=== PATIENT | female | born 1955 | race Caucasian/White ===

== ENCOUNTER → 2018-08-12 | Outpatient (CLI) | payer MEDICARE, OTHER ==
[~2018-08-12] MED LIST: CELEBREX 200 M200 M1 PO; DICLOFENAC; DOXYCYCLINE PO; EXCEDRIN CAPLE1 EACH PO; FLEXERIL PO; HYDROCHLOROTHIA25 M2 PO; HYDROCODONE-APA1 TA1 PO; MAXALT; METAXALL800 MG PO; MULTIVITAMINS; PERCOCET PO; TESTOSTERONE CREAM; TRAMADOL 50 MG50 MG PO
== END ==
LOC: M.RAD 15:37
DX: M41.84 Other forms of scoliosis, thoracic region (principal); M47.894 Other spondylosis, thoracic region; M25.78 Osteophyte, vertebrae; G89.29 Other chronic pain; M54.6 Pain in thoracic spine

== ENCOUNTER → 2018-12-04 | Outpatient (CLI) | payer MEDICARE, OTHER | LOC: M.RAD 09:33 | DX: Z12.31 Encounter for screening mammogram for malignant neoplasm of breast (principal) ==

== ENCOUNTER → 2020-02-24 | Outpatient (CLI) | payer MEDICARE, OTHER | LOC: M.RAD 09:26 | DX: M85.88 Other specified disorders of bone density and structure, other site (principal) ==

== ENCOUNTER → 2020-03-05 | Outpatient (CLI) | payer MEDICARE, OTHER | LOC: M.RAD 13:19 | DX: Z12.31 Encounter for screening mammogram for malignant neoplasm of breast (principal) ==

== ENCOUNTER → 2021-01-11 | Outpatient (CLI) | payer MEDICARE, OTHER | LOC: M.ULTRA 11:35 | PROVIDERS: ATTEND Family Medicine | DX: M79.605 Pain in left leg (principal) ==

== ENCOUNTER → 2021-05-19 | Outpatient (CLI) | payer MEDICARE, OTHER | LOC: M.RAD 09:00 | PROVIDERS: ATTEND Family Medicine | DX: Z12.31 Encounter for screening mammogram for malignant neoplasm of breast (principal) ==

== ENCOUNTER → 2021-10-18 | Outpatient (CLI) | payer MEDICARE, OTHER | LOC: M.LAB 10-13 09:39 → M.MRI 11:12 | PROVIDERS: ATTEND Family Medicine | DX: M79.672 Pain in left foot (principal); M21.962 Unspecified acquired deformity of left lower leg ==